=== PATIENT | female | born 1985 | race Caucasian/White ===

== ENCOUNTER 2016-05-14 21:02 | Emergency (ER) | payer MEDICAID, OTHER ==
--- NOTE | 2016-05-14 22:05 | EDDOCDS ---
Nurse's Notes [facility] Name: Ave Wynne Age: 30 yrs Sex: Female : 1985 Arrival Date: 05/14/2016 Time: 21:02 Bed Triage 3 Private MD: Justina Araujo Diagnosis: Acute pharyngitis Presentation: 05/14 21:05 Presenting complaint: Patient states: ST x4 days. Denies other symptoms. Risk factors: ttb Stridor is not present. Drooling is not present. Shortness of breath is not present. Cellulitis is not present. Adult Sepsis Screening: The patient does not have new or worsening altered mentation. Patient's respiratory rate is less than 22. Systolic blood pressure is greater than 100. Patient has a qSOFA score of 0- Negative Sepsis Screen. Suicide/Homicide risk assessment- the patient denies having any suicidal and/or homicidal ideations and does not present with any other emotional, behavioral or mental health complaints. Status: The patient is a dependent. Transition of care: patient was not received from another setting of care. 21:05 Acuity: [place] Level 4 ttb 21:05 Method Of Arrival: Walkin/Carried/Asstd ttb Triage Assessment: 21:07 General: Appears in no apparent distress, well nourished, well groomed, Behavior is ttb appropriate for age, cooperative, pleasant. Pain: Pain currently is 8 out of 10 on a pain scale. HIV screening NA for this visit Offered previously. Neurological: Level of Consciousness is awake, alert, Oriented to person, place, time. EENT: Reports pain in throat. Respiratory: Airway is patent Respiratory effort is even, unlabored. GI: Reports nausea, Denies vomiting, pain. Derm: Skin is normal. Injury Description: No known injury. 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 Calcium + Vitamin D Oral daily (Last dose: 05/14/2016 08:00) - PMHx: none; - PSHx: right knee; Tubal ligation; Uterine Ablation; - Social history: Smoking status: Patient uses tobacco products, heavy tobacco smoker. Patient uses alcohol occasionally. Patient/guardian denies using street drugs, No barriers to communication noted, The patient speaks fluent Argentine, Speaks appropriately for age. - Family history: Not pertinent. - : The pt / caregiver states he / she is not on anticoagulants. Home medication list is obtained from the patient. - Exposure Risk Screening:: None identified. Screenin:45 Screening information is obtained from the patient. Fall risk: No risks identified. jf3 Assistance ADL's: requires no assistance with activities of daily living. Abuse/DV Screen: The patient / caregiver reports he/she is: not in a situation that causes fear, pain or injury. Nutritional screening: No deficits noted. Advance Directives: Currently, there is no health care proxy. home support is adequate. Assessment: 21:45 General: Appears in no apparent distress, comfortable, Behavior is cooperative. jf3 Neurological: Level of Consciousness is awake, alert, Oriented to person, place, time. Cardiovascular: Capillary refill < 3 seconds. Respiratory: Airway is patent Respiratory effort is even, unlabored, Respiratory pattern is regular, symmetrical. Derm: Skin is pink, warm & dry. Vital Signs: 21:04 BP 131 / 70; Pulse 95; Resp 16; Temp 98.1(O); Pulse Ox 99% ; Weight 57.15 kg; Height 5 cmb ft. 1 in. (154.94 cm); Pain 8/10; 21:04 Body Mass Index 23.81 (57.15 kg, 154.94 cm) cmb Vitals: 21:04 Log In Time: May 14, 2016 at 21:02. cmb 21:44 Strep Screen is obtained and tested: Negative, a GATSNEG culture is ordered in [place] [address] and sent. ED Course: 21:03 Patient visited by Nisha Haji. cmb 21:03 Patient moved to Waiting cmb 21:04 Justina Araujo is Private Physician. cmb 21:04 Patient moved to Pre RCE cmb 21:06 Triage Initiated ttb 21:09 Patient visited by Fang Magana RN. ttb 21:15 Patient moved to Triage 3 ttb 21:22 Javier Martinez PA is PHCP. btw 21:22 Olinda Landin MD is Attending Physician. btw 21:22 Patient visited by Javier Martinez PA. btw 21:45 The patient / caregiver is instructed regarding the plan of care and ED course. jf3 21:45 No IV's were initiated during this patient's visit. No procedures done that require jf3 assistance. 21:49 Justina Araujo is Referral Physician. bt Order Results: There are currently no results for this order. Outcome: 21:49 Discharge ordered by Provider. btw 22:03 Discharge Assessment: Patient awake, alert and oriented x 3. No cognitive and/or jf3 functional deficits noted. Patient verbalized understanding of disposition instructions. patient administered narcotics - no. The following High Risk Discharge criteria are identified: None. Discharged to home ambulatory, with significant other. Condition: stable. Discharge instructions given to patient, significant other, Instructed on discharge instructions, follow up and referral plans. Demonstrated understanding of instructions, Pt was receptive of discharge instructions/ teaching. No special radiology studies were completed. Property :Personal belongings accompany Pt. 22:04 Patient left the ED. jf3 Signatures: Javier Martinez PA PA btNisha Israel Teresa RN RN ttb Juan Jimenez,RN RN jf3 MTDGordon
--- NOTE | 2016-05-14 22:05 | EDDOCDS ---
Physician Documentation [facility] Name: Ave Wynne Age: 30 yrs Sex: Female : 1985 Arrival Date: 05/14/2016 Time: 21:02 Bed Triage 3 Private MD: Justina Araujo Disposition: 05/14/16 21:49 Discharged to Home/Self Care. Impression: Acute pharyngitis. - Condition is Stable. - Discharge Instructions: Salt Water Gargle, Pharyngitis, [id number]. - Medication Reconciliation, Local Pharmacy Hours form. - Follow up: Justina Araujo; When: Call to arrange an appointment; Reason: Further diagnostic work-up, Recheck today's complaints, Continuance of care. - Problem is new. - Symptoms are unchanged. Historical: - Allergies: PENICILLINS; Codeine Sulfate; - Home Meds: 1. Calcium + Vitamin D Oral daily (Last dose: 05/14/2016 08:00) - PMHx: none; - PSHx: right knee; Tubal ligation; Uterine Ablation; - Social history: Smoking status: Patient uses tobacco products, heavy tobacco smoker. Patient uses alcohol occasionally. Patient/guardian denies using street drugs, No barriers to communication noted, The patient speaks fluent Ivorian, Speaks appropriately for age. - Family history: Not pertinent. - : The pt / caregiver states he / she is not on anticoagulants. Home medication list is obtained from the patient. - Exposure Risk Screening:: None identified. 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 1 in. (154.94 cm); Pain 8/10; 21:04 Body Mass Index 23.81 (57.15 kg, 154.94 cm) cmb MDM: 21:18 Strep Screen, Nursing ordered. btw 21:40 GATS (NEGATIVE STREP SCREEN) Ordered. EDMS Signatures: Dispatcher [employer] EDMS Javier Martinez PA PA btw Fang Magana RN RN ttb Juan Jimenez RN RN jf3 MTDD
--- NOTE | 2016-05-16 23:05 | EDDOCDS ---
Physician Documentation [facility] Name: Ave Wynne Age: 30 yrs Sex: Female : 1985 Arrival Date: 05/14/2016 Time: 21:02 Bed Triage 3 Private MD: Justina Araujo Disposition: 05/14/16 21:49 Discharged to Home/Self Care. Impression: Acute pharyngitis. - Condition is Stable. - Discharge Instructions: Salt Water Gargle, Pharyngitis, [id number]. - Medication Reconciliation, Local Pharmacy Hours form. - Follow up: Justina Araujo; When: Call to arrange an appointment; Reason: Further diagnostic work-up, Recheck today's complaints, Continuance of care. - Problem is new. - Symptoms are unchanged. Historical: - Allergies: PENICILLINS; Codeine Sulfate; - Home Meds: 1. Calcium + Vitamin D Oral daily (Last dose: 05/14/2016 08:00) - PMHx: none; - PSHx: right knee; Tubal ligation; Uterine Ablation; - Social history: Smoking status: Patient uses tobacco products, heavy tobacco smoker. Patient uses alcohol occasionally. Patient/guardian denies using street drugs, No barriers to communication noted, The patient speaks fluent Sierra Leonean, Speaks appropriately for age. - Family history: Not pertinent. - : The pt / caregiver states he / she is not on anticoagulants. Home medication list is obtained from the patient. - Exposure Risk Screening:: None identified. 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 1 in. (154.94 cm); Pain 8/10; 21:04 Body Mass Index 23.81 (57.15 kg, 154.94 cm) cmb MDM: 21:18 Strep Screen, Nursing ordered. btw 21:40 GATS (NEGATIVE STREP SCREEN) Ordered. EDMS 22:05 [facility] Agreement was scanned into [employer] and attached to record. gj 22:05 Financial registration complete. gjb 05/15 09:18 T-Sheet-- Draft Copy was scanned into [employer] and attached to record. gb Signatures: Dispatcher [employer] EDPadmaja Gann, Reg Reg gb Javier Martinez PA PA btw Conner, Teresa, RN RN ttb Juan Jimenez RN RN jfDana Moreno The chart was reviewed and I authenticate all verbal orders and agree with the evaluation and treatment provided.Attachments: 05/14 22:05 [facility] [place] Agreement gjb 05/15 09:18 T-Sheet-- Draft Copy gb Chart Complete MTDD
--- NOTE | 2016-05-16 23:05 | EDDOCDS ---
Nurse's Notes [facility] Name: Ave Wynne Age: 30 yrs Sex: Female : 1985 Arrival Date: 05/14/2016 Time: 21:02 Bed Triage 3 Private MD: Justina Araujo Diagnosis: Acute pharyngitis Presentation: 05/14 21:05 Presenting complaint: Patient states: ST x4 days. Denies other symptoms. Risk factors: ttb Stridor is not present. Drooling is not present. Shortness of breath is not present. Cellulitis is not present. Adult Sepsis Screening: The patient does not have new or worsening altered mentation. Patient's respiratory rate is less than 22. Systolic blood pressure is greater than 100. Patient has a qSOFA score of 0- Negative Sepsis Screen. Suicide/Homicide risk assessment- the patient denies having any suicidal and/or homicidal ideations and does not present with any other emotional, behavioral or mental health complaints. Status: The patient is a dependent. Transition of care: patient was not received from another setting of care. 21:05 Acuity: [place] Level 4 ttb 21:05 Method Of Arrival: Walkin/Carried/Asstd ttb Triage Assessment: 21:07 General: Appears in no apparent distress, well nourished, well groomed, Behavior is ttb appropriate for age, cooperative, pleasant. Pain: Pain currently is 8 out of 10 on a pain scale. HIV screening NA for this visit Offered previously. Neurological: Level of Consciousness is awake, alert, Oriented to person, place, time. EENT: Reports pain in throat. Respiratory: Airway is patent Respiratory effort is even, unlabored. GI: Reports nausea, Denies vomiting, pain. Derm: Skin is normal. Injury Description: No known injury. 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 Calcium + Vitamin D Oral daily (Last dose: 05/14/2016 08:00) - PMHx: none; - PSHx: right knee; Tubal ligation; Uterine Ablation; - Social history: Smoking status: Patient uses tobacco products, heavy tobacco smoker. Patient uses alcohol occasionally. Patient/guardian denies using street drugs, No barriers to communication noted, The patient speaks fluent Tunisian, Speaks appropriately for age. - Family history: Not pertinent. - : The pt / caregiver states he / she is not on anticoagulants. Home medication list is obtained from the patient. - Exposure Risk Screening:: None identified. Screenin:45 Screening information is obtained from the patient. Fall risk: No risks identified. jf3 Assistance ADL's: requires no assistance with activities of daily living. Abuse/DV Screen: The patient / caregiver reports he/she is: not in a situation that causes fear, pain or injury. Nutritional screening: No deficits noted. Advance Directives: Currently, there is no health care proxy. home support is adequate. Assessment: 21:45 General: Appears in no apparent distress, comfortable, Behavior is cooperative. jf3 Neurological: Level of Consciousness is awake, alert, Oriented to person, place, time. Cardiovascular: Capillary refill < 3 seconds. Respiratory: Airway is patent Respiratory effort is even, unlabored, Respiratory pattern is regular, symmetrical. Derm: Skin is pink, warm & dry. Vital Signs: 21:04 BP 131 / 70; Pulse 95; Resp 16; Temp 98.1(O); Pulse Ox 99% ; Weight 57.15 kg; Height 5 cmb ft. 1 in. (154.94 cm); Pain 8/10; 21:04 Body Mass Index 23.81 (57.15 kg, 154.94 cm) cmb Vitals: 21:04 Log In Time: May 14, 2016 at 21:02. cmb 21:44 Strep Screen is obtained and tested: Negative, a GATSNEG culture is ordered in [place] [address] and sent. ED Course: 21:03 Patient visited by Nisha Haji. cmb 21:03 Patient moved to Waiting cmb 21:04 Justina Araujo is Private Physician. cmb 21:04 Patient moved to Pre RCE cmb 21:06 Triage Initiated ttb 21:09 Patient visited by Fang Magana RN. ttb 21:15 Patient moved to Triage 3 ttb 21:22 Javier Martinez PA is PHCP. btw 21:22 Olinda Landin MD is Attending Physician. btw 21:22 Patient visited by Javier Martinez PA. btw 21:45 The patient / caregiver is instructed regarding the plan of care and ED course. jf3 21:45 No IV's were initiated during this patient's visit. No procedures done that require jf3 assistance. 21:49 Justina Araujo is Referral Physician. btw 22:05 [facility] Payment Agreement was scanned into [employer] and attached to record. kristen 05/15 09:18 T-Sheet-- Draft Copy was scanned into [employer] and attached to record. gb Order Results: Lab Order: GATS (NEGATIVE STREP SCREEN); SPEC'M 05/14/16 21:35 Test: GATS CULTURE (NEG STREP SCR); Value: GATS RESULT NEGATIVE FOR STREP PYOGENES (GROUP A); Status: F Outcome: 05/14 21:49 Discharge ordered by Provider. btw 22:03 Discharge Assessment: Patient awake, alert and oriented x 3. No cognitive and/or jf3 functional deficits noted. Patient verbalized understanding of disposition instructions. patient administered narcotics - no. The following High Risk Discharge criteria are identified: None. Discharged to home ambulatory, with significant other. Condition: stable. Discharge instructions given to patient, significant other, Instructed on discharge instructions, follow up and referral plans. Demonstrated understanding of instructions, Pt was receptive of discharge instructions/ teaching. No special radiology studies were completed. Property :Personal belongings accompany Pt. 22:04 Patient left the ED. jf3 Signatures: Padmaja Gallagher, Javier Pearson PA PA btw Nisha Haji Teresa, RN RN ttb Juan Jimenez,RN RN Dana Carreno Chart Complete MTDD
--- NOTE | 2016-05-16 23:05 | EDDOCDS ---
Physician Documentation [facility] Name: Ave Wynne Age: 30 yrs Sex: Female : 1985 Arrival Date: 05/14/2016 Time: 21:02 Bed Triage 3 Private MD: Justina Araujo Disposition: 05/14/16 21:49 Discharged to Home/Self Care. Impression: Acute pharyngitis. - Condition is Stable. - Discharge Instructions: Salt Water Gargle, Pharyngitis, [id number]. - Medication Reconciliation, Local Pharmacy Hours form. - Follow up: Justina Araujo; When: Call to arrange an appointment; Reason: Further diagnostic work-up, Recheck today's complaints, Continuance of care. - Problem is new. - Symptoms are unchanged. Historical: - Allergies: PENICILLINS; Codeine Sulfate; - Home Meds: 1. Calcium + Vitamin D Oral daily (Last dose: 05/14/2016 08:00) - PMHx: none; - PSHx: right knee; Tubal ligation; Uterine Ablation; - Social history: Smoking status: Patient uses tobacco products, heavy tobacco smoker. Patient uses alcohol occasionally. Patient/guardian denies using street drugs, No barriers to communication noted, The patient speaks fluent Namibian, Speaks appropriately for age. - Family history: Not pertinent. - : The pt / caregiver states he / she is not on anticoagulants. Home medication list is obtained from the patient. - Exposure Risk Screening:: None identified. 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 1 in. (154.94 cm); Pain 8/10; 21:04 Body Mass Index 23.81 (57.15 kg, 154.94 cm) cmb MDM: 21:18 Strep Screen, Nursing ordered. btw 21:40 GATS (NEGATIVE STREP SCREEN) Ordered. EDMS 22:05 [facility] [place] Agreement was scanned into [employer] and attached to record. gj 22:05 Financial registration complete. gjb 05/15 09:18 T-Sheet-- Draft Copy was scanned into [employer] and attached to record. gb Signatures: Dispatcher [employer] EDPadmaja Gann, Reg Reg gb Javier Martinez PA PA btw Conner, Teresa, RN RN ttb Juan Jimenez RN RN jfDana Moreno The chart was reviewed and I authenticate all verbal orders and agree with the evaluation and treatment provided.Attachments: 05/14 22:05 [facility] Payment Agreement gjb 05/15 09:18 T-Sheet-- Draft Copy gb Chart Complete MTDD
== END 2016-05-14 22:04 | disposition home or self-care (01) ==
LOC: M ED 21:02
DX: J02.9 Acute pharyngitis, unspecified (principal); Z72.0 Tobacco use; Z79.899 Other long term (current) drug therapy; Z88.0 Allergy status to penicillin; Z88.5 Allergy status to narcotic agent

== ENCOUNTER → 2016-08-13 | Outpatient (CLI) | payer OTHER | LOC: M OUTALCOH 07:41 | PROVIDERS: ATTEND Psychiatry & Neurology Psychiatry | DX: Z03.89 Encounter for observation for other suspected diseases and conditions ruled out (principal) ==

== ENCOUNTER 2016-11-09 18:57 | Emergency (ER) | payer OTHER, SELFPAY ==
[~2016-11-09] VITALS: Ht 154.9 cm; Wt 49.1 kg
[2016-11-09] MEDS ORDERED: BACT800T5 PO (21:25)
[2016-11-09] MEDS ORDERED: PYRI1TAB5 PO (21:25)
[2016-11-09] MEDS ORDERED: PHENAZOPYRIDINE 100 MG TAB PO ONE (21:30)
[2016-11-09] MEDS ORDERED: BACTRIM 160MG/800MG DS TAB PO ONE (21:30)
[2016-11-09 21:33] VITALS: BP 110/70
== END 2016-11-09 21:35 | disposition home or self-care (01) ==
LOC: M ED 18:57
DX: N30.00 Acute cystitis without hematuria (principal); F17.200 Nicotine dependence, unspecified, uncomplicated; Z87.440 Personal history of urinary (tract) infections; Z88.5 Allergy status to narcotic agent; Z88.0 Allergy status to penicillin; Z91.030 Bee allergy status

== ENCOUNTER → 2017-07-27 | Outpatient (CLI) | payer BC | LOC: M LRY 13:42 | DX: R05 Cough (principal) | CPT/HCPCS: 71046 ==

== ENCOUNTER → 2017-07-27 | Outpatient (REF) | payer BC | LOC: M SFHCLERA 13:16 | DX: J02.9 Acute pharyngitis, unspecified (principal) ==

== ENCOUNTER → 2017-12-21 | Outpatient (REF) | payer BC ==
[2017-12-21 18:52] LABS: PROGESTERONE 0.4 NG/ML
[2017-12-21 18:53] LABS: ESTRADIOL 32.1 PG/ML; FOLLICLE STIMULATING HORMONE 7.2 mIU/mL; LUTEINIZING HORMONE 2.3 mIU/mL
[2017-12-21 18:57] LABS: FREE T4 1.06 NG/DL (0.76-1.46)
[2017-12-23 10:56] LABS: TESTOSTERONE FREE (DIRECT) 0.8 pg/mL (0.0-4.2)
== END ==
LOC: M LAB REF 17:51
DX: N92.1 Excessive and frequent menstruation with irregular cycle (principal); E34.9 Endocrine disorder, unspecified; F52.0 Hypoactive sexual desire disorder
CPT/HCPCS: 83001

== ENCOUNTER → 2018-01-30 | Outpatient (REF) | payer BC | LOC: M SFHCLERA 09:40 | DX: J02.9 Acute pharyngitis, unspecified (principal) | CPT/HCPCS: 87880 ==